=== PATIENT | male | born 1965 | race Caucasian/White ===

== ENCOUNTER → 2019-07-27 13:27 | Outpatient (BNVA) | payer MEDICAID, SELFPAY | PROVIDERS: Visit Provider Nurse Practitioner | DX: M54.16 Radiculopathy, lumbar region (principal); M51.9 Unspecified thoracic, thoracolumbar and lumbosacral intervertebral disc disorder; M54.2 Cervicalgia; M25.519 Pain in unspecified shoulder; F17.210 Nicotine dependence, cigarettes, uncomplicated; Z79.891 Long term (current) use of opiate analgesic | CPT/HCPCS: 99212; 99213; 99214 ==

== ENCOUNTER → 2019-08-11 12:49 | Outpatient (BNVA) | payer OTHER, SELFPAY | PROVIDERS: Visit Provider Registered Nurse | DX: Z79.899 Other long term (current) drug therapy (principal) | CPT/HCPCS: 80178 ==

== ENCOUNTER 2019-09-14 08:46 | Outpatient (CLI) | payer MEDICAID, SELFPAY ==
--- NOTE | 2019-09-14 09:00 | XR_ITS ---
WS: [id number] CERVICAL SPINE 3 VIEWS HISTORY: neck pain increased post fall COMPARISON: None available. Posterior cervical alignment is normal. Mild disc space narrowing and endplate osteophytes. Most significant osteophyte disease is from C4 to C6. Minimal disc space narrowing at C5-6. There is very slight LEFT convex curvature of the cervical spine. C1 and C2 lateral masses align. The odontoid is intact. Soft tissues are normal. XR/XR cervical spine 3V* [id number] IMPRESSION: 1. Mild LEFT convex curvature cervical spine. 2. Mild spondylitic changes at C4-5 and C5-6.
--- NOTE | 2019-09-14 09:00 | XR_ITS ---
WS: [id number] LUMBAR SPINE: 3 VIEWS TECHNIQUE: AP, lateral and L5-S1 spot. HISTORY: increased pain low back COMPARISON: 03/26/2011 Lumbar vertebra are normally aligned. Very mild anterior wedging of L3 with sclerosis along the superior endplate is similar to the prior s tudy. Small osteophyte along the endplates of L4 and L2. Facet joint arthropathy is mild at L4-5 and L5-S1. No fracture. SI joints are symmetric bilaterally. No soft tissue abnormalities. XR/XR lumbar spine 2-3V* [id number] IMPRESSION: 1. Stable mild anterior wedging of L3. 2. Mild spondylosis as above. Minimal change since 03/26/2011.
--- NOTE | 2019-09-14 09:00 | XR_ITS ---
WS: [id number] RIGHT SHOULDER: 3 VIEW(S) TECHNIQUE: Internal and external rotation with Y view. HISTORY: Pain with decreased range of motion. Recent fall. COMPARISON: None available. Cortical irregularity and thickening involving the distal clavicle. Majority of these changes appear chronic. Cannot exclude a nondisplaced fracture along the inferior surface of the distal clavicle. Mi ld AC joint narrowing. Humeral head is intact. Visualized RIGHT upper lung is normal. XR/XR shoulder RT min 2V* [id number] IMPRESSION: 1. Suspect nondisplaced distal clavicle fracture. Superimposed on degenerative changes. For confirmation CT could be obtained of the RIGHT shoulder. 2. Normal humeral head.
== END 2019-09-14 08:47 | disposition home or self-care (01) ==
PROVIDERS: PCP Nurse Practitioner Family; Visit Provider Nurse Practitioner
DX: M47.892 Other spondylosis, cervical region (principal); M47.896 Other spondylosis, lumbar region; M54.5 Low back pain; M54.2 Cervicalgia; M25.511 Pain in right shoulder
CPT/HCPCS: 72040; 72100; 73030

== ENCOUNTER → 2019-09-23 09:37 | Outpatient (BNVA) | payer MEDICAID, SELFPAY | PROVIDERS: PCP Nurse Practitioner Family; Visit Provider Anesthesiology | DX: M51.9 Unspecified thoracic, thoracolumbar and lumbosacral intervertebral disc disorder (principal); M54.16 Radiculopathy, lumbar region; M54.2 Cervicalgia; F17.210 Nicotine dependence, cigarettes, uncomplicated; Z79.891 Long term (current) use of opiate analgesic; Z71.6 Tobacco abuse counseling | CPT/HCPCS: 99214 ==

== ENCOUNTER 2019-11-21 09:36 | Day surgery (SDC) | payer MEDICAID, SELFPAY ==
[2019-11-18 10:50] VITALS: BMI 27.3
--- NOTE | 2019-11-21 08:45 | P.HP_ITS ---
Same Day Surgery H&P Indication for Procedure/HPI DATE OF PROCEDURE: November 21, 2019 CHIEF COMPLAINT/INDICATIONFOR SURGICAL PROCEDURE: Colon cancer screening routine average risk PREOP DIAGNOSIS: Colon cancer screening routine average risk PLANNED PROCEDRUE: Operation Date: 11/21/19 11:05 Proposed Procedures p Colonoscopy 89738 Z12.11(Not Applicable) - George Tariq MD Medications/Allergies* Home Medications Medication Instructions Recorded Confirmed Type promethazine 25 mg rectal 25 mg IN ONCE PRN each 07/26/19 11/18/19 History suppository famotidine 40 mg tablet 40 mg PO DAILY 10/24/19 11/18/19 History insulin aspar prt-insulin aspart 45 unit SUBCUT BID ml 10/24/19 11/18/19 History 100 unit/mL (70-30) subcutaneous soln lactulose 20 gram/30 mL oral 20 gm PO BID 10/24/19 11/18/19 History solution Allergies/Adverse Reactions Allergy/AdvReac Type Severity Reaction Status Date / Time No Known Allergies Allergy Verified 11/18/19 10:45 Pertinent History/Comorbid Conditions* Medical History Chronic post-traumatic stress disorder Encounter for long-term opiate analgesic use Lumbar disc disease Lumbar radiculopathy Major depressive disorder, recurrent severe without psychotic features Neck pain Smoker Surgical History (Updated 07/27/19 @ 14:45 by BK Martinez) No history of previous surgery Family History (Updated 07/26/19 @ 16:34 by ADRIAN Garcia) Psychiatric care Unknown family members in general Diabetes Unknown family members in general Heart disease Unknown family members in general Social History Smoking and tobacco status: current every day smoker cigarettes [ Other cigarette details: 1/2 ppd ] Alcohol intake: former Former alcohol use details: Quit 13-14 years ago Pertinent Exam Findings alert, oriented x 3, clear to auscultation bilaterally, regular rate & rhythm, operative site marked and procedure specific exam findings Recommendations Surgery/Procedure today Coding Level of Care Code Acute Network Security Administrator for Jose Willis
[2019-11-21 09:56] VITALS: BP 117/95; PULSE 114; RESP 18; TEMP 36.9; O2SAT 98
[2019-11-21] MEDS: sodium chloride 0.9% 1,000 ML 30 ML IV (10:01)
[2019-11-21 10:02] LABS: Glucose Point of Care 216 mg/dL (70-110)
--- NOTE | 2019-11-21 10:21 | ANES.PREANE2 ---
Pre-Anesthetic Assessment Pre-Anesthetic Assessment: Height/Weight: Height 1.73 m Weight 81.647 kg Temp Pulse Resp BP Pulse Ox 98.4 F 114 H 18 117/95 98 11/21/19 09:56 11/21/19 09:56 11/21/19 09:56 11/21/19 09:56 11/21/19 09:56 Preop Diagnosis: screen Proposed Procedure: Operation Date: 11/21/19 11:05 Proposed Procedures p Colonoscopy 80222 Z12.11(Not Applicable) - George Tariq MD Familial anesthetic complications: none Was Beta Marquita taken within 24 hours: N/A Last intake: Intake Last Liquid Date 11/20/19 Last Liquid Time 21:00 Last Solid Date 11/20/19 Last Solid Time 11:00 Social: Social History: Tobacco and No alcohol Exam: Pre-Anes Outpt Exam: alert, oriented x 3, clear to auscultation bilaterally and regular rate & rhythm Airway: Cervical ROM: WNL MP: 3 Dentition: Chipped and Loose Additional comments: full cazares Pulmonary: Pulmonary: None reported CV/HEM: CV/HEM: None reported : : None reported Hepatic: Hepatic: Cirrohsis and Hepatitis (Hep C) GI: GI: None reported Metabolic: Metabolic: DM Musc/skel: Musc/skel: None reported Neuropsych: Neuropsych: None reported Anesthetic Plan: ASA status: 3 Anesthesia: MAC Risk of > 500 ml blood loss (7ml/kg in children): No Meds/Allergies Current Medications: Current Medications Generic Name Dose Route Start Last Admin Trade Name Freq PRN Reason Stop Dose Admin Sodium Chloride 1,000 mls @ 30 ml s/hr 11/21/19 09:45 11/21/19 10:01 Sodium Chloride 0.9% IV 30 mls/hr .Q24H NELSON Administration PFSH Anesthesia PFSH: Medical History Chronic post-traumatic stress disorder Encounter for long-term opiate analgesic use Lumbar disc disease Lumbar radiculopathy Major depressive disorder, recurrent severe without psychotic features Neck pain Smoker Surgical History No history of previous surgery Family History Unknown Heart disease family members in general Unknown Diabetes family members in general Unknown Psychiatric care family members in general Social History Smoking and tobacco status: current every day smoker cigarettes [ Other cigarette details: 07/07 ppd ] Alcohol intake: former Former alcohol use details: Quit 13-14 years ago Data Anesthesia Other Labs: Laboratory Results - last 48 hr 11/21/19 09:59 POC Glucose 216 Cardiac Studies: No Data to Display
[2019-11-21 10:54] VITALS: BP 86/63; PULSE 72; RESP 18; TEMP 36.3; O2SAT 94
[2019-11-21 11:06] VITALS: BP 103/60; PULSE 93; RESP 18; O2SAT 97
== END 2019-11-21 11:20 | disposition home or self-care (01) ==
PROVIDERS: PCP Nurse Practitioner Family; Visit Provider Internal Medicine
PROC: 0DJD8ZZ Inspection of Lower Intestinal Tract, Via Natural or Artificial Opening Endoscopic (ICD-10-PCS; CPT 45378; principal; 2019-11-21 11:00)
DX: Z12.11 Encounter for screening for malignant neoplasm of colon (principal); K57.30 Diverticulosis of large intestine without perforation or abscess without bleeding; B19.20 Unspecified viral hepatitis C without hepatic coma; E11.9 Type 2 diabetes mellitus without complications; F17.210 Nicotine dependence, cigarettes, uncomplicated; F32.9 Major depressive disorder, single episode, unspecified
CPT/HCPCS: 12345; 36416; 45378; 82962; J2001; J2704; J7030

== ENCOUNTER 2019-12-30 13:59 | Outpatient (CLI) | payer MEDICAID, SELFPAY ==
--- NOTE | 2019-12-30 14:15 | US_ITS ---
WS: [id number] RIGHT UPPER QUADRANT ULTRASOUND HISTORY: Hepatitis C. Abdominal pain. COMPARISON: 03/25/2019 Liver: 17.3 cm in length. Liver is slightly enlarged. Surface of the liver is irregular and nodular. Mild coarsened echotexture. Consistent with cirrhosis. No mass identified or bile duct dilatation. Gallbladder: Normally distended gallbladder with no stones or wall thickening. CBD: 0.3 cm Pancreas: Normal size and echogenicity. Right kidney: 11.0 cm in length. Normal echogenicity with no mass or hydronephrosis. Aorta and IVC: Unremarkable. No ascites. US/US liver [id number] IMPRESSION: 1. Mild hepatocellular disease consistent with cirrhosis. Similar to 03/25/2019 . 2. Negative gallbladder.
== END 2019-12-30 14:00 | disposition home or self-care (01) ==
LOC: RAD 14:00
PROVIDERS: PCP Nurse Practitioner Family; Visit Provider Internal Medicine
DX: B19.20 Unspecified viral hepatitis C without hepatic coma (principal); R10.9 Unspecified abdominal pain; K76.9 Liver disease, unspecified
CPT/HCPCS: 76705

== ENCOUNTER → 2020-01-11 10:41 | Outpatient (BNVA) | payer MEDICAID, SELFPAY | PROVIDERS: PCP Nurse Practitioner Family; Visit Provider Nurse Practitioner | DX: M54.16 Radiculopathy, lumbar region (principal); M51.9 Unspecified thoracic, thoracolumbar and lumbosacral intervertebral disc disorder; M54.2 Cervicalgia; M54.9 Dorsalgia, unspecified; F17.210 Nicotine dependence, cigarettes, uncomplicated; Z79.891 Long term (current) use of opiate analgesic | CPT/HCPCS: 99214 ==

== ENCOUNTER → 2020-01-12 14:01 | Outpatient (BNVA) | payer MEDICAID, SELFPAY | PROVIDERS: PCP Nurse Practitioner Family; Visit Provider Anesthesiology Pain Medicine | DX: M47.816 Spondylosis without myelopathy or radiculopathy, lumbar region (principal); M54.9 Dorsalgia, unspecified; F17.210 Nicotine dependence, cigarettes, uncomplicated; Z79.891 Long term (current) use of opiate analgesic | CPT/HCPCS: 64635; 64636; J1030 ==

== ENCOUNTER 2020-01-19 07:02 | Outpatient (CLI) | payer MEDICAID, SELFPAY ==
--- NOTE | 2020-01-19 07:15 | MR_ITS ---
WS: [id number] MRI CERVICAL SPINE NONCONTRAST TECHNIQUE: Sagittal T1, T2 and STIR imaging. Axial T2, gradient, and fiesta imaging. CLINICAL INFORMATION: M54.2 Cervicalgia COMPARISON: None. FINDINGS: Straightening of the normal cervical lordosis. Mild disc bulging mid cervical spine at C4-C6. Cord si gnal is normal. C2-C3: Mild left and no significant right foraminal narrowing. Spinal canal is patent. C3-C4: Tiny shallow central protrusion. Mild left and no significant right foraminal narrowing. Spina l canal is patent. Mild facet arthropathy. C4-C5: Tiny shallow central protrusion. Mild left and no significant right foraminal narrowing. Mild facet arthropathy. Mild central canal stenosis. C5-C6: Disc osteophyte complex with endplate ridging. Mild to moderate central canal stenosis. Severe bilateral bony foraminal narrowing right greater than left. C6-C7: Mild disc bulging with osteophytic ridging. Mild bilateral bony foraminal narrowing. Spinal ca nal is patent. C7-T1: Mild left and no significant right foraminal narrowing. Spinal canal is patent. Visualized brain stem structures: Normal. Prevertebral soft tissues: Normal. MR/MR cervical spin wo con* [id number] IMPRESSION: 1. Straightening of the normal cervical lordosis. No high-grade central canal stenosis. Cord signal is normal. 2. Mild to moderate central canal stenosis C5-C6 due to disc osteophyte comple x. Mild central canal stenosis C4-C5 with a shallow central protrusion. 3. Severe bilateral C5-C6 bony foraminal narrowing right greater than left harman nly due to facet arthropathy and uncovertebral joint hypertrophy
== END 2020-01-19 07:03 | disposition home or self-care (01) ==
LOC: RADSHAW 07:05
PROVIDERS: PCP Nurse Practitioner Family; Visit Provider Nurse Practitioner
DX: M48.02 Spinal stenosis, cervical region (principal); M47.812 Spondylosis without myelopathy or radiculopathy, cervical region; M25.78 Osteophyte, vertebrae
CPT/HCPCS: 72141

== ENCOUNTER → 2020-01-25 13:55 | Outpatient (BNVA) | payer MEDICAID, SELFPAY | PROVIDERS: PCP Nurse Practitioner Family; Visit Provider Anesthesiology Pain Medicine | DX: M47.816 Spondylosis without myelopathy or radiculopathy, lumbar region (principal); M54.9 Dorsalgia, unspecified; F17.210 Nicotine dependence, cigarettes, uncomplicated; Z79.891 Long term (current) use of opiate analgesic | CPT/HCPCS: 64635; 64636; J1030 ==

== ENCOUNTER → 2020-02-15 15:08 | Outpatient (BNVA) | payer MEDICAID, SELFPAY | PROVIDERS: PCP Nurse Practitioner Family; Visit Provider Counselor Professional | DX: F33.2 Major depressive disorder, recurrent severe without psychotic features (principal); F43.12 Post-traumatic stress disorder, chronic | CPT/HCPCS: 90832 ==

== ENCOUNTER → 2020-02-29 15:05 | Outpatient (BNVA) | payer MEDICAID, SELFPAY | PROVIDERS: PCP Nurse Practitioner Family; Visit Provider Counselor Professional | DX: F33.2 Major depressive disorder, recurrent severe without psychotic features (principal); F43.12 Post-traumatic stress disorder, chronic | CPT/HCPCS: 90832 ==

== ENCOUNTER → 2020-03-07 07:59 | Outpatient (BNVA) | payer MEDICAID, SELFPAY | PROVIDERS: PCP Nurse Practitioner Family; Visit Provider Anesthesiology | DX: M47.816 Spondylosis without myelopathy or radiculopathy, lumbar region (principal); M54.16 Radiculopathy, lumbar region; M51.9 Unspecified thoracic, thoracolumbar and lumbosacral intervertebral disc disorder; M54.2 Cervicalgia; M54.9 Dorsalgia, unspecified; F17.210 Nicotine dependence, cigarettes, uncomplicated; Z79.891 Long term (current) use of opiate analgesic; Z71.6 Tobacco abuse counseling | CPT/HCPCS: 99214 ==

== ENCOUNTER → 2020-04-02 10:10 | Outpatient (BNVA) | payer MEDICAID, SELFPAY | PROVIDERS: PCP Nurse Practitioner Family; Visit Provider Counselor Professional | DX: F33.2 Major depressive disorder, recurrent severe without psychotic features (principal); F43.12 Post-traumatic stress disorder, chronic | CPT/HCPCS: 90834 ==

== ENCOUNTER → 2020-05-03 14:22 | Outpatient (BNVA) | payer MEDICAID, SELFPAY | PROVIDERS: PCP Nurse Practitioner Family; Visit Provider Counselor Professional | DX: F33.2 Major depressive disorder, recurrent severe without psychotic features (principal); F43.12 Post-traumatic stress disorder, chronic | CPT/HCPCS: 90832 ==

== ENCOUNTER → 2020-05-15 10:15 | Outpatient (BNVA) | payer MEDICAID, SELFPAY | PROVIDERS: PCP Nurse Practitioner Family; Visit Provider Anesthesiology | DX: M47.816 Spondylosis without myelopathy or radiculopathy, lumbar region (principal); M54.16 Radiculopathy, lumbar region; M51.9 Unspecified thoracic, thoracolumbar and lumbosacral intervertebral disc disorder; M54.9 Dorsalgia, unspecified; M54.2 Cervicalgia; F17.210 Nicotine dependence, cigarettes, uncomplicated; Z79.891 Long term (current) use of opiate analgesic; Z71.6 Tobacco abuse counseling | CPT/HCPCS: 99214 ==

== ENCOUNTER → 2020-06-07 14:06 | Outpatient (BNVA) | payer MEDICAID, SELFPAY | PROVIDERS: PCP Nurse Practitioner Family; Visit Provider Counselor Professional | DX: F33.2 Major depressive disorder, recurrent severe without psychotic features (principal); F43.12 Post-traumatic stress disorder, chronic | CPT/HCPCS: 90832 ==

== ENCOUNTER 2020-06-25 20:00 | Outpatient (CLI) | payer MEDICAID, SELFPAY | END 2020-06-25 20:01 | disposition home or self-care (01) | LOC: SLEEP 06-26 08:41 | PROVIDERS: PCP Nurse Practitioner Family; Visit Provider Registered Nurse | DX: G47.10 Hypersomnia, unspecified (principal); G47.33 Obstructive sleep apnea (adult) (pediatric) | CPT/HCPCS: 95810 ==

== ENCOUNTER → 2020-07-10 07:57 | Outpatient (BNVA) | payer MEDICAID, SELFPAY | PROVIDERS: PCP Nurse Practitioner Family; Visit Provider Anesthesiology | DX: M47.816 Spondylosis without myelopathy or radiculopathy, lumbar region (principal); M54.16 Radiculopathy, lumbar region; M51.9 Unspecified thoracic, thoracolumbar and lumbosacral intervertebral disc disorder; M54.2 Cervicalgia; M54.9 Dorsalgia, unspecified; F17.210 Nicotine dependence, cigarettes, uncomplicated; Z79.1 Long term (current) use of non-steroidal anti-inflammatories (NSAID); Z79.891 Long term (current) use of opiate analgesic | CPT/HCPCS: 99214 ==

== ENCOUNTER → 2020-09-03 13:44 | Outpatient (BNVA) | payer MEDICAID, SELFPAY | PROVIDERS: PCP Nurse Practitioner Family; Visit Provider Registered Nurse | DX: Z03.89 Encounter for observation for other suspected diseases and conditions ruled out (principal) | CPT/HCPCS: 36415; 80053; 80061; 82306; 82607; 83036; 84443; 85025 ==

== ENCOUNTER → 2020-09-05 08:03 | Outpatient (BNVA) | payer MEDICAID, SELFPAY | PROVIDERS: PCP Nurse Practitioner Family; Visit Provider Anesthesiology | DX: M54.2 Cervicalgia (principal); M54.16 Radiculopathy, lumbar region; M51.9 Unspecified thoracic, thoracolumbar and lumbosacral intervertebral disc disorder; M47.816 Spondylosis without myelopathy or radiculopathy, lumbar region; M54.9 Dorsalgia, unspecified; F17.210 Nicotine dependence, cigarettes, uncomplicated; Z79.1 Long term (current) use of non-steroidal anti-inflammatories (NSAID); Z79.891 Long term (current) use of opiate analgesic | CPT/HCPCS: 99214 ==

== ENCOUNTER 2020-09-11 20:00 | Outpatient (CLI) | payer MEDICAID, SELFPAY | END 2020-09-11 20:01 | disposition home or self-care (01) | LOC: SLEEP 09-12 08:54 | PROVIDERS: PCP Nurse Practitioner Family; Visit Provider Registered Nurse | DX: G47.33 Obstructive sleep apnea (adult) (pediatric) (principal) | CPT/HCPCS: 95811 ==

== ENCOUNTER → 2020-11-07 09:19 | Outpatient (BNVA) | payer MEDICAID, SELFPAY | PROVIDERS: PCP Nurse Practitioner Family; Visit Provider Nurse Practitioner | DX: M25.552 Pain in left hip (principal); M54.16 Radiculopathy, lumbar region; M54.2 Cervicalgia; M51.9 Unspecified thoracic, thoracolumbar and lumbosacral intervertebral disc disorder; M54.9 Dorsalgia, unspecified; F17.210 Nicotine dependence, cigarettes, uncomplicated; Z79.1 Long term (current) use of non-steroidal anti-inflammatories (NSAID); Z79.891 Long term (current) use of opiate analgesic | CPT/HCPCS: 99214 ==

== ENCOUNTER → 2021-01-11 07:58 | Outpatient (BNVA) | payer MEDICAID, SELFPAY | PROVIDERS: PCP Nurse Practitioner Family; Visit Provider Anesthesiology | DX: G89.29 Other chronic pain (principal); M47.816 Spondylosis without myelopathy or radiculopathy, lumbar region; M54.16 Radiculopathy, lumbar region; M51.9 Unspecified thoracic, thoracolumbar and lumbosacral intervertebral disc disorder; M54.2 Cervicalgia; F17.210 Nicotine dependence, cigarettes, uncomplicated; Z79.891 Long term (current) use of opiate analgesic | CPT/HCPCS: 99214 ==

== ENCOUNTER → 2021-09-23 14:05 | Outpatient (BNVA) | payer MEDICAID, SELFPAY | PROVIDERS: PCP Nurse Practitioner Family; Visit Provider Registered Nurse | DX: Z79.899 Other long term (current) drug therapy (principal) | CPT/HCPCS: 80053; 80061; 82306; 83036; 85025 ==

== ENCOUNTER → 2022-10-08 15:19 | Outpatient (BNVA) | payer MEDICAID, SELFPAY | PROVIDERS: PCP Nurse Practitioner Family; Visit Provider Registered Nurse | DX: Z79.899 Other long term (current) drug therapy (principal) | CPT/HCPCS: 80053; 80061; 82306; 82607; 83036; 84443; 85025 ==